=== PATIENT | female | born 1980 | race Hispanic/Latino ===

== ENCOUNTER → 2021-01-13 | Day surgery (SDC) | payer OTHER ==
--- NOTE | 2021-01-13 13:15 | RAD REPORT ---
EXAM DESCRIPTION: US - Fine Needle Asp Breast Guide - 01/13/2021 12:09 pm CLINICAL HISTORY: Mass upper-outer quadrant left breast. COMPARISON: Mammogram and ultrasound April 2020, ultrasound November 2020 FINDINGS: The patient presents for ultrasound-guided breast aspiration and possible core biopsy. The procedure, risks and alternatives were discussed with the patient in detail. After answering all qu estions, oral and written consent were obtained. Time out procedure was performed. The patient had no contraindicated allergy or medication history. Preliminary imaging again identified the oval 10-12 mm mass in the 1-2 o'clock position of the left b reast near the chest wall. An adjacent 6 millimeter rounded anechoic to hypoechoic focus was identifi ed as well. Cyst aspiration procedure was initiated. The skin was prepped and draped in the usual sterile fashion . Skin and deeper tissues were anesthetized with 1 percent lidocaine. Under direct sonographic visua lization, the available 20 gauge and 22 gauge needles were utilized. Attempts were made a 45 degree a ngle as well as a far lateral approach that was parallel to the chest wall. The mass is difficult to visualize as a baseline. Additionally, the mass is surrounded by dense glandular tissue. Passage of t he aspiration needles through the dense glandular tissue would displace the mass making it difficult to penetrate the outer wall of the presumed cyst. The amount of force directed to penetrate the cyst was limited due to the small size of the mass and its proximity to the chest wall musculature. After multiple attempts, the small mass was punctured with thin aspiration needle but no fluid could be wit hdrawn. Multiple to and fro excursions of the needle tip or made. The minimal amount of aspirate was given to pathology for evaluation. Given the difficulty in accessing the mass due to the dense glandular tissue, small size and chest wa ll location, it was determined that large bore vacuum assisted biopsy could not be performed in a man ner that was regarded as safe or likely to yield diagnostic material. Therefore, no large core biopsy procedure performed. The patient tolerated the procedure well without complications. Post-procedure care and precaution in structions were given to the patient. IMPRESSION: Ultrasound-guided fine-needle aspiration procedure was performed as detailed. As describ ed above, large bore core biopsy could not be performed in a manner that was considered safe or likel y to yield diagnostic material. The small mass did not collapse at the 1 time the needle was able to penetrate the mass. However, thi s may be due to the needle being plugged with cellular debris rather than an indication the mass is s olid. The small amount of aspirated material was given to pathology but may not reflect the small cyst/mass internal content. The mass in question was reported to have enlarged between April and November imaging. A small 6-7 mi llimeter anechoic to hypoechoic mass was seen adjacent to this mass in question on the current study. It is possible the smaller mass represents the April finding. The 12 millimeter mass/cyst may not have been visualized in April. Overall, a benign etiology remains favored for these left breast findings. It is felt a very reasonab le approach is to monitor these findings with repeat left breast ultrasound in 6 months to monitor fo r any size change or change in characteristics.
== END ==
LOC: FNA 09:22
PROVIDERS: ATTEND Obstetrics & Gynecology
DX: R92.8 Other abnormal and inconclusive findings on diagnostic imaging of breast (principal)
CPT/HCPCS: 10005; 76942; 88162